=== PATIENT | female | born 1960 | race African-American/Black ===

== ENCOUNTER → 2016-06-14 | Day surgery (SDC) | payer BC ==
--- NOTE | 2016-06-15 20:57 | OP ---
DATE OF OPERATION: 06/14/2016 PREOPERATIVE DIAGNOSIS: Left breast mass at 2:30, 7 cm from the nipple. POSTOPERATIVE DIAGNOSIS: Left breast mass at 2:30, 7 cm from the nipple.. PROCEDURE: Left ultrasound guided core biopsy with U-shaped clip placement. SURGEON: Santosh Hutson MD ESTIMATED BLOOD LOSS: Minimal. COMPLICATIONS: None. DESCRIPTION OF PROCEDURE: The patient was made aware of the risks and benefits of the procedure and consented. She was placed in the supine position. Under sterile conditions with 1% lidocaine for local anesthesia, a small keyla was made in the skin. Using a 13-gauge suction biopsy, a biopsy via the lateral approach and ultrasound guidance, 6 cores were obtained and submitted to Pathology. Likewise under ultrasonic control, a U-shaped clip was placed into the biopsy region. We tolerated by the patient. Steri-Strip and sterile bandage was applied. Will contact her with the results. SANTOSH HUTSON M.D. [id number]
--- NOTE | 2016-06-17 15:26 | PATH ---
Surgical Pathology Report Patient Name: TREVOR WU [facility]. Rec. #: [id number] /Age/Gender: 1960 (Age: 55) / F Account: [id number] Location: [facility] RADIOLOGY U Taken: 06/14/2016 Received: 06/14/2016 Reported: 06/17/2016 Physicians: Santosh Hutson M.D. 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 Electronically Signed Patti Ramos M.D. Gross Description Received in formalin, labeled "left breast biopsy 2:30, N 7," is a 1.7 x 1.0 x 0.2 cm aggregate of multiple luna-yellow, irregular to cylindrical portions of fibroadipose tissue. The formalin is filtered and the specimen is entirely submitted in one cassette. Time to formalin fixation: < 1 minute Total formalin fixation time: Approximately 7 hours. /06/14/2016 saudi06/14/2016
== END | disposition home or self-care (01) ==
LOC: FRADUS-SUR 10:34
PROVIDERS: ATTEND Surgery Surgical Oncology
PROC: 0HBU3ZX Excision of Left Breast, Percutaneous Approach, Diagnostic (ICD-10-PCS; principal; 2016-06-14)
DX: N63 Unspecified lump in breast (principal); D24.2 Benign neoplasm of left breast; N60.91 Unspecified benign mammary dysplasia of right breast
CPT/HCPCS: 19083; 87899; 88305-TC; A4648; G0206-TC